=== PATIENT | female | born 2000 | race Caucasian/White ===

== ENCOUNTER 2018-09-28 17:22 | Emergency (ER) | payer SELFPAY ==
[~2018-09-28] VITALS: Ht 149.9 cm; Wt 81.6 kg
[2018-09-28] MEDS ORDERED: ACYC400T PO (17:35)
[2018-09-28 17:54] LABS: BILIRUBIN,URINE NEGATIVE (NEGATIVE); CLARITY,URINE CLEAR; COLOR,URINE YELLOW; GLUCOSE, URINE (UA) NEGATIVE (NEGATIVE); KETONES,URINE 1+ (NEGATIVE); LEUKOCYTE ESTERASE ,URINE 3+ (NEGATIVE); NITRITE,URINE NEGATIVE (NEGATIVE); PH,URINE 6 (5-9); PROTEIN,URINE 2+ (NEGATIVE); UROBILINOGEN,URINE NORMAL (NORMAL)
--- NOTE | 2018-09-28 18:11 | NUR ---
LAB CALLED WITH REPORT CULTURES ARE MOD AMT OF WBC AND CUE CELL LIZET [employer] NOTIFIED.
[2018-09-28] MEDS ORDERED: LIDOCAINE 1% INJ 20 ML 20 ML VIAL INJ ONE (18:15)
[2018-09-28] MEDS ORDERED: HYDROcodone/APAP 5 MG/325 MG (LORTAB) TAB PO ONE (18:15)
[2018-09-28] MEDS ORDERED: cefTRIAXone 1,000 MG/2.86 ml vial (IM ONLY) IM SCH (18:15)
[2018-09-28 18:17] LABS: BACTERIA,URINE TRACE /HPF
[2018-09-28] MEDS ORDERED: METR-145 PO (18:49)
[2018-09-28] MEDS ORDERED: ACHD5005 PO (18:49)
--- NOTE | 2018-09-28 18:51 | ED Integumentary General ---
General Chief Complaint: Skin/Wound Problems Stated Complaint: SKIN LESIONS IN GROIN Nursing Triage Note: AMB TO ROOM WAS SEEN AT CLINIC IN [place] FOR POSSIBLE HERPES REPORTS THAT HAS LESIONS IN VAG AREA THAT ARE PAINFUL AND BURN. WAS STARTED ON ACYCLOVIR .WAS TESTED FOR ALL STD'S AND HERPES CALLED CLINC TODAY AND WAS TOLD ALL TEST WAS NEG.,BUT CON'T TO HAVE INCREASE SWELLING AND BURNING. Source: patient Exam Limitations: no limitations History of Present Illness Date Seen by Provider: Sep 28, 2018 Time Seen by Provider: 17:36 Initial Comments 18-year-old female who presents to the emergency room with complaints of possible herpes to her vagina area. She reports that she was seen and evaluated in [place] for possible herpes and was started on acyclovir. She was informed that her testings were all negative but has had increasing pain and swelling to the area. She is still waiting on blood testing results. Timing/Duration: week Associated Symptoms: blisters Allergies and Home Medications Allergies Coded Allergies: No Known Drug Allergies (Unverified , 09/28/18) Home Medications Hydrocodone Bit/Acetaminophen 1 Tab Tab, 1 EACH PO Q4-6HR PRN for PAIN-MODERATE Prescribed by: LIZET MAGUIRE on 09/28/181848 Metronidazole 500 Mg Tablet, 500 MG PO BID Prescribed by: LIZET MAGUIRE on 09/28/181848 Patient Home Medication List Home Medication List Reviewed: Yes Review of Systems Review of Systems Constitutional: see HPI; No chills, No fever Genitourinary: see HPI, pain (to the outer area of her vagina) : No All Other Systems Reviewed Negative Unless Noted: Yes Past Xjpdomy-Wlzrgh-Tjqyhq Hx Past Med/Social Hx: Reviewed Nursing Past Med/Soc Hx Patient Social History Alcohol Use: Denies Use Recreational Drug Use: No Smoking Status: Never a Smoker Recent Foreign Travel: No Contact w/Someone Who Travel: No Recent Infectious Disease Expo: No Past Medical History Surgeries: Yes Gallbladder, Tonsillectomy Respiratory: No Cardiac: No Neurological: No Genitourinary: No Gastrointestinal: No Musculoskeletal: No Endocrine: No HEENT: No Cancer: No Psychosocial: No Integumentary: No Family Medical History Reviewed Nursing Family Hx Physical Exam Vital Signs Vital Signs - First Documented 09/28/18 17:27 Temp 98.5 Pulse 80 Resp 18 B/P (MAP) 102/71 (81) Pulse Ox 99 O2 Delivery Room Air Capillary Refill : Less Than 3 Seconds General Appearance: WD/WN, no apparent distress Cardiovascular: normal peripheral pulses, regular rate, rhythm, no edema, no gallop, no JVD, no murmur Respiratory: chest non-tender, lungs clear, normal breath sounds, no respiratory distress, no accessory muscle use Extremities: normal capillary refill Neurologic/Psychiatric: alert, normal mood/affect, oriented x 3 Skin: normal color, warm/dry Skin Problem Location: other (vagina) Skin Problem Character: lesion (herpes appearing lesions. Exam was assisted by Talita PURI.) Progress/Results/Core Measures Results/Orders Lab Results Laboratory Tests Test 09/28/18 17:26 09/28/18 17:44 Range/Units Lab Scanned Report Referred Lab Report [id number] Urine Color YELLOW Urine Clarity CLEAR Urine pH 6 5-9 Urine Specific [place] 1.020 1.016-1.022 Urine Protein 2+ H NEGATIVE Urine Glucose (UA) NEGATIVE NEGATIVE Urine Ketones 1+ H NEGATIVE Urine Nitrite NEGATIVE NEGATIVE Urine Bilirubin NEGATIVE NEGATIVE Urine Urobilinogen NORMAL NORMAL MG/DL Urine Leukocyte Esterase 3+ H NEGATIVE Urine RBC (Auto) 3+ H NEGATIVE Urine RBC NONE /HPF Urine WBC 10-25 H /HPF Urine Squamous Epithelial Cells 5-10 /HPF Urine Crystals NONE /LPF Urine Bacteria TRACE /HPF Urine Casts NONE /LPF Urine Mucus NEGATIVE /LPF Urine Culture Indicated YES Micro Results Microbiology 09/28/18 Genital Culture - Preliminary, Resulted Usual Vaginal Shadia Strep agalactiae Group B 09/28/18 Wet Prep - Final, Resulted 09/28/18 Urine Culture - Final, Complete 3 or more isolates My Orders Orders - LIZET MAGUIRE Wet Prep (09/28/18 17:36) Genital Culture (09/28/18 17:36) Herpes Simplex Culture (09/28/18 17:39) Ua Culture If Indicated (09/28/18 17:41) Neis Jose Carlos Dna Urine Test (09/28/18 17:41) Chlamydia Trachomatis Urine (09/28/18 17:41) Ceftriaxone For Im Use (Rocephin For Im (09/28/18 18:15) Lidocaine 1% Inj 20 Ml (Xylocaine 1% Inj (09/28/18 18:15) Hydrocodone/Apap 5/325 Tablet (Lortab 5 (09/28/18 18:15) Urine Culture (09/28/18 17:44) Lidocaine 2% Viscous 15 Ml (Xylocaine Vi (09/28/18 18:54) Azithromycin Tablet (Zithromax Tablet) (09/28/18 19:00) Im Injection Antibiotic Ed (09/28/18 ) Medications Given in ED Vital Signs/I&O 09/28/18 09/28/18 17:27 19:08 Temp 98.5 Pulse 80 80 Resp 18 18 B/P (MAP) 102/71 (81) 102/71 (81) Pulse Ox 99 98 O2 Delivery Room Air Room Air Blood Pressure Mean: 81 Departure Impression Primary Impression: suspected herpes Additional Impression: Bacterial vaginosis Disposition: HOME, SELF-CARE Condition: Stable/Unchanged Departure-Patient Inst. Decision time for Depature: 18:46 Referrals: NO,LOCAL PHYSICIAN (PCP/Family) Primary Care Physician Patient Instructions: Bacterial Vaginosis, Genital Herpes (DC), Screening for Sexually Transmitted Infections Add. Discharge Instructions: Refrain from sexual intercourse until your testing is completed. Take medications as directed. You may use Tylenol and ibuprofen in addition to your prescribed pain meds not exceeding your daily limit of Tylenol of 4000 mg. Use the topical lidocaine that was provided as needed for comfort. Return back to the emergency room for worsening symptoms or concerns as needed. All discharge instructions reviewed with patient and/or family. Voiced understanding. Scripts Hydrocodone Bit/Acetaminophen (Hydrocodone/Acetaminophen 5/325mg Tablet) 1 Tab Tab 1 EACH PO Q4-6HR PRN for PAIN-MODERATE MDD 10 for 3 Days, #14 TAB Prov: LIZET MAGUIRE 09/28/18 Metronidazole (Metronidazole) 500 Mg Tablet 500 MG PO BID for 7 Days, #14 TAB 0 Refills Prov: LIZET MAGUIRE 09/28/18 LIZET MAGUIRE Sep 28, 2018 18:51
[2018-09-28] MEDS ORDERED: LIDOCAINE 2% VISCOUS 15 ML UDC ONE (18:54)
[2018-09-28] MEDS ORDERED: AZITHROMYCIN 250 MG TAB (ZITHROMAX) PO SCH (19:00)
[2018-09-28 19:08] VITALS: BP 102/71
--- OUTSIDE RECORDS SUMMARY | 2018-09-28 19:20 | XMS REPORT ---
Author Author LUBA GORE Organization [facility] Address [address] [place] [address] Care Team Providers Care Primary Counselor Name Role Phone LUBA GORE Unavailable PROBLEMS Unknown Problems ALLERGIES No Known Allergies ENCOUNTERS Encounter Location Date Diagnosis [facility] [address] [facility] [id number] [address] Mar, Dysuria R30.0 and Urinary tract infection N39.0 IMMUNIZATIONS No Known Immunizations SOCIAL HISTORY Never Assessed REASON FOR VISIT Dysuria x 2-3 days. Pain when wiping. Denies polyuria. Pt has not been sexual ly active for three months and utilized protection in the form of a condom. [facility] PLAN OF CARE Activity Details Follow Up if not improving with PCP or reg follow up Reason: Pending Test CULTURE, URINE VITAL SIGNS Height 58.66 in 2018-04-02 Weight 168.6 lbs 2018-04-02 Temperature 97.6 degrees Fahrenheit 2018-04-02 Heart Rate 80 bpm 2018-04-02 Respiratory Rate 20 2018-04-02 BMI 34.45 kg/m2 2018-04-02 Blood pressure systolic 104 mmHg 2018-04-02 Blood pressure diastolic 60 mmHg 2018-04-02 MEDICATIONS Medication Instructions Dosage Frequency Start Date End Date Duration Status Sulfamethoxazole-Trimethoprim 800-160 MG Orally Twice a day 1 tablet 12Mar, 10 day(s) Active RESULTS Name Result Date Reference Range UA LONG DIP (IN HOUSE) 2018-04-02 Lot # [id number] Exp date 01/23/2019 Clarity clear Color yellow Odor slight GLU negative CHAYO negative KET negative SG >=1.030 BLO 1+ pH 5.5 Protein negative URO 0.2 NIT negative CHRISTINA 1+ Lot # Exp date PROCEDURES Procedure Date Ordered Result Body Site URINALYSIS, AUTO, W/O SCOPE Apr 02, 2018 URINE CULTURE/COLONY COUNT Apr 02, 2018 INSTRUCTIONS MEDICATIONS ADMINISTERED No Known Medications MEDICAL (GENERAL) HISTORY Type Description Date Medical History PCOS diagnosed 2016 Surgical History cholecystectomy 2017 Surgical History tonsillectomy and adenoidectomy 2016
== END 2018-09-28 19:07 | disposition home or self-care (01) ==
LOC: ER 17:26
DX: N76.0 Acute vaginitis (principal); B96.89 Other specified bacterial agents as the cause of diseases classified elsewhere; Z90.89 Acquired absence of other organs
CPT/HCPCS: 36415; 81000; 87070; 87077; 87088; 87205; 87210; 87254; 87491; 87591; 96372; 99284

== ENCOUNTER 2018-11-03 21:44 | Emergency (ER) | payer SELFPAY ==
[~2018-11-03] VITALS: Ht 149.9 cm; Wt 81.6 kg
[~2018-11-03 21:44] MED LIST: ACHD5005 PO; ACYC400T PO; METR-145 PO
[2018-11-03] MEDS ORDERED: METF-397 PO (21:57)
--- NOTE | 2018-11-03 22:09 | ED GU-Female ---
General Chief Complaint: RN HOSPITAL Stated Complaint: FEMALE PROBLEMS Nursing Triage Note: genital lesions, rectal bleeding. Nursing Sepsis Screen: No Definite Risk Source: patient Exam Limitations: no limitations History of Present Illness Date Seen by Provider: Nov 03, 2018 Time Seen by Provider: 21:46 Initial Comments The patient presents to the ER by private conveyance with her significant other and chief complaint that last month she was diagnosed with HSV type I herpes labialis as well as a bacterial vaginitis. She was put on Flagyl and acyclovir. She was also given some lidocaine topical. She said that the herpes outbreak never totally went away and its burning and cause a lot of pain. She's also noticed some blood in the last 2 stools for the past day. She denies any chest pain shortness of breath or history of anemia. No nausea vomiting or dysuria. She does take metformin for a history of diabetes. Allergies and Home Medications Allergies Coded Allergies: No Known Drug Allergies (Unverified , 09/28/18) Patient Home Medication List Home Medication List Reviewed: Yes Review of Systems Review of Systems Constitutional: No chills, No fever, No malaise EENTM: No ear discharge, No hearing loss, No ear pain Respiratory: No cough, No short of breath Cardiovascular: No chest pain, No edema Gastrointestinal: see HPI; No abdominal pain, No constipation, No nausea Genitourinary: burning (labial rash); denies dysuria : No Musculoskeletal: No back pain, No joint pain Past Uhgqkhs-Qgjhwf-Aqvyik Hx Patient Social History Alcohol Use: Denies Use Recreational Drug Use: No Smoking Status: Never a Smoker 2nd Hand Smoke Exposure: No Recent Foreign Travel: No Contact w/Someone Who Travel: No Recent Infectious Disease Expo: No Recent Hopitalizations: No Immunizations Up To Date Tetanus Booster (TDap): Unknown Seasonal Allergies Seasonal Allergies: No Past Medical History Surgeries: Yes Gallbladder, Tonsillectomy Respiratory: No Cardiac: No Neurological: No : No Sexually Transmitted Disease: Yes HIV/AIDS: No Genitourinary: No Gastrointestinal: No Musculoskeletal: No Endocrine: Yes Diabetes, Non-Insulin dep HEENT: No Cancer: No Psychosocial: No Integumentary: No Blood Disorders: No Physical Exam Vital Signs Vital Signs - First Documented 11/03/18 21:50 Temp 99.8 Pulse 89 Resp 18 B/P (MAP) 115/79 (91) Pulse Ox 98 O2 Delivery Room Air Capillary Refill : Less Than 3 Seconds Height, Weight, BMI Height: 4'11.00" Weight: 180lbs. oz. 81.796730uc; BMI Method:Stated General Appearance: WD/WN, no apparent distress HEENT: PERRL/EOMI, normal ENT inspection, pharynx normal Cardiovascular: normal peripheral pulses, regular rate, rhythm Respiratory: no respiratory distress, no accessory muscle use Gastrointestinal: normal bowel sounds, non tender, soft Genital/Rectal: other (external vaginal exam with some shallow ulcerations that are tender to palpation pale appearance consistent with herpes. No evidence of secondary bacterial infection.) Rectal: normal rectal tone, hemorrhoids (12:00 o'clock), other (fecal occult blood test positive. No stool in the rectal vault) Neurologic/Psychiatric: alert, normal mood/affect, oriented x 3 Progress/Results/Core Measures Suspected Sepsis Recent Fever Within 48 Hours: No Infection Criteria Present: None New/Unexplained Altered Menta: No Sepsis Screen: No Definite Risk SIRS Temperature:99.8 Pulse: 89 Respiratory Rate: 18 Blood Pressure 115 /79 Mean: 91 Results/Orders Vital Signs/I&O 11/03/18 21:50 Temp 99.8 Pulse 89 Resp 18 B/P (MAP) 115/79 (91) Pulse Ox 98 O2 Delivery Room Air Capillary Refill : Less Than 3 Seconds Blood Pressure Mean: 91 Progress Note : Time: 22:40 Progress Note Fecal occult blood test is positive. We will give her referral to Dr. Davey. She has a small unremarkable noninflamed hemorrhoid at 12:00. She has some herpes ulcerations but stool itself has microscopic/occult blood. Acyclovir oral. Viscous lidocaine. Encourage her to follow up with a primary care provider. Departure Impression Primary Impression: Herpes genitalis in women Additional Impressions: Vj blood in stool Hemorrhoidal skin tag Disposition: HOME, SELF-CARE Condition: Stable Departure-Patient Inst. Decision time for Depature: 22:44 Referrals: NO,LOCAL PHYSICIAN (PCP/Family) Primary Care Physician Patient Instructions: Bloody Stools, Adult (DC), Genital Herpes (DC) Add. Discharge Instructions: Acyclovir 3 times a day by mouth with food. Viscous lidocaine applied one pea sized amount every 4 hours as needed for pain. Keep your stool soft by using stool softeners such as Colace and laxatives such as MiraLAX or suppositories as needed. Drink plenty of fluids. Call Dr. Davey, general surgery and request an appointment to follow-up the blood in the stool. All discharge instructions reviewed with patient and/or family. Voiced understanding. Scripts Acyclovir (Acyclovir) 800 Mg Tablet 800 MG PO TID for 7 Days, #21 TAB 0 Refills Prov: CARITO GOEL 11/03/18 Acyclovir (Acyclovir) 800 Mg Tablet 800 MG PO TID for 10 Days, #30 TAB 0 Refills Prov: CRAITO GOEL 11/03/18 CARITO GOEL Nov 03, 2018 22:09
[2018-11-03] MEDS ORDERED: ACYC800T PO (22:46)
[2018-11-03] MEDS ORDERED: LIDOCAINE 2% VISCOUS 15 ML UDC PO ONE (23:00)
[2018-11-03 23:02] VITALS: BP 102/81
--- NOTE | 2018-11-04 09:29 | NUR ---
tonya called us. they have 2 scripts for acyclovir 800 mg . 1 script for 7 days and [address] vázquez reviewed the chart and said 10 days. that is what i said to pharmacy.
== END 2018-11-03 23:02 | disposition home or self-care (01) ==
LOC: EDUNIT# 21:44 → ER 21:46
DX: A60.04 Herpesviral vulvovaginitis (principal); K64.4 Residual hemorrhoidal skin tags; K92.1 Melena; E11.9 Type 2 diabetes mellitus without complications; Z79.84 Long term (current) use of oral hypoglycemic drugs
CPT/HCPCS: 99283

== ENCOUNTER 2019-09-24 10:35 | Emergency (ER) | payer BC ==
[~2019-09-24] VITALS: Ht 147 cm; Wt 82.2 kg
[~2019-09-24 10:35] MED LIST changes: +ACYC800T PO; +METF-397 PO
--- OUTSIDE RECORDS SUMMARY | 2019-09-24 10:40 | XMS REPORT | Continuity of Care Document ---
Author Organization Unknown Address Unknown Phone Unavailable Allergies Active Description Code Type Severity Reaction Onset Reported/Identified Relationship to Patient Clinical Status Yes No Known Drug Allergies [id number] Drug Allergy Unknown N/A 09/28/2018 Medications There is no data. Problems Date Dx Coded Attending Type Code Diagnosis Diagnosed By 09/28/2018 LIZET MAGUIRE Ot B96.89 OTH BACTERIAL AGENTS THE CAUSE OF DIS 09/28/2018 BERNOT, LIZET Ot N76.0 ACUTE VAGINITIS 09/28/2018 BERNOTTIANAIS Ot R10.2 PELVIC AND PERINEAL PAIN 09/28/2018 BERNTIANA BOLIVARIS Ot Z90.89 ACQUIRED ABSENCE OF OTHER ORGANS 10/03/2018 BERNOTTIANAIS Ot B96.89 OTH BACTERIAL AGENTS THE CAUSE OF DIS 10/03/2018 BERNOT, LIZET Ot N76.0 ACUTE VAGINITIS 10/03/2018 BERNOT, LIZET Ot R10.2 PELVIC AND PERINEAL PAIN 10/03/2018 BERNOT LIZET Ot Z90.89 ACQUIRED ABSENCE OF OTHER ORGANS 11/03/2018 CARITO GOEL MD Ot A60. 04 HERPESVIRAL VULVOVAGINITIS 11/03/2018 CARITO GOEL MD Ot E11. 9 TYPE 2 DIABETES MELLITUS WITHOUT COMPLIC 11/03/2018 CARITO GOEL MD Ot K64. 4 RESIDUAL HEMORRHOIDAL SKIN TAGS 11/03/2018 CARITO GOEL MD Ot K92. 1 MELENA 11/03/2018 CARITO GOEL MD Ot N89. 8 OTHER SPECIFIED NONINFLAMMATORY DISORDER 11/03/2018 CARITO GOEL MD Ot Z79. 84 [employer] (CURRENT) USE OF ORAL HYPOGLYC 11/09/2018 CARITO GOEL MD Ot A60. 04 HERPESVIRAL VULVOVAGINITIS 11/09/2018 CARITO GOEL MD Ot E11. 9 TYPE 2 DIABETES MELLITUS WITHOUT COMPLIC 11/09/2018 CARITO GOEL MD Ot K64. 4 RESIDUAL HEMORRHOIDAL SKIN TAGS 11/09/2018 CARITO GOEL MD Ot K92. 1 MELENA 11/09/2018 CARITO GOEL MD Ot N89. 8 OTHER SPECIFIED NONINFLAMMATORY DISORDER 11/09/2018 CARITO GOEL MD Ot Z79. 84 [employer] (CURRENT) USE OF ORAL HYPOGLYC Procedures There is no data. Results Test Result Range Complete urinalysis with reflex to cultu re - 09/28/18 17:44 Urine color determination YELLOW NRG Urine clarity determination CLEAR NR G Urine pH measurement by test strip 6 5-9 Specific gravity of urine by test strip 1.020 1.016-1.022 Urine protein assay by test strip, semi-quantitative 2+ NEGATIVE Urine glucose detection by automated test strip NE GATIVE NEGATIVE Erythrocytes detection in urine sediment by light micr oscopy 3+ NEGATIVE Urine ketones detection by automated test strip 1+ NEGATIVE Urine nitrite detection by test strip NEGATIVE NEGATIVE Urine total bilirubin detection by test strip NEGA TIVE NEGATIVE Urine urobilinogen measurement by automated test strip (mass/volume) NORMAL NORMAL Urine leukocyte esterase detection by dipstick 3+ NEGATIVE Automated urine sediment erythrocyte cou nt by microscopy (number/high power field) NONE NRG Automated urine sediment leukocyte count by microscopy (number/high power field) [HPF] NRG Bacteria detection in urine sediment by light microsco py TRACE NRG Squamous epithelial cells detection in u rine sediment by light microscopy 5-10 NRG Crystals detection in urine sediment by light microsco py NONE NRG Casts detection in urine sediment by light microscopy NONE NRG Mucus detection in urine sediment by light microscopy NEGATIVE NRG Complete urinalysis with reflex to culture YES NRG Bacterial urine culture - 09/28/18 17:44 Bacterial urine culture 3 OR MORE NRG COLONY COUNT 20,000 CFU/ML NRG FTX;REPORTABLE GRAM POSITIVES, SUGGESTING PROBABLE NRG FREE TEXT ENTRY 2 COLLECTION CONTAMINATION WITH SK IN DIVINE NRG FREE TEXT ENTRY 3 NO SUSCEPTIBILITY PERFORMED NRG Chlamydia DNA amp probe, urine - 9 17:44 Chlamydia DNA amp probe, urine Not Detected Not Detected Urine Neisseria gonorrhoeae DNA assay - 09/28/18 17:44 Gonorrhea amp DNA-urine Not Detected No t Detected Bacteria identification in genital speci men by aerobe culture - 09/28/18 17:59 FREE TEXT EXTERNAL SEE COMMENTS NRG QUANTITY OF GROWTH FEW NRG Bacteria identification in genital specimen by aerobe culture [id number] NRG Microscopic examination by wet preparati on - 09/28/18 17:59 WET PREP RESULTS 09/28/18 1755 BY RT NRG Herpes simplex virus (HSV) culture - 09/11 17:59 Herpes simplex virus (HSV) culture Negative for Herpes Simplex Virus Type 2 NRG Encounters ACCT No. Visit Date/Time Discharge Status Pt. Type Provider Facility Loc./Unit Complaint [id number] 11/03/2018 21:46:00 019 23:02:00 DIS Emergency CARITO GOEL MD [facility] ER FEMALE PROBLEMS [id number] 09/28/2018 17:26:00 19:07:00 DIS Emergency LIZET MAGUIRE [facility] ER SKIN LESIONS IN GROIN
--- NOTE | 2019-09-24 11:36 | Diagnostic Imaging Report ---
INDICATION: Pain COMPARISON: None available TECHNIQUE: 3 radiographs of the left foot dated 09/24/2019. FINDINGS: No acute fracture or dislocation. No destructive osseous process. Lisfranc joint is well aligned. No suspicious radiopaque foreign body. IMPRESSION: Unremarkable examination without acute osseous abnormality. Dictated by: Dictated on workstation # [id number]
--- NOTE | 2019-09-24 12:03 | ED Lower Extremity ---
General Chief Complaint: Lower Extremity Stated Complaint: L FOOT INJ Nursing Triage Note: PT PRESENTS TO ED WITH COMPLAINTS OF L FOOT PAIN AFTER GOIG OUT 3 DAYS AGO. PT IS UNSURE/DOESNT REMEMBER IF SHE MAY HAVE INJURED IT OR NOT. Nursing Sepsis Screen: No Definite Risk Source: patient Exam Limitations: no limitations History of Present Illness Date Seen by Provider: September 24, 2019 Time Seen by Provider: 10:48 Initial Comments This 19-year-old young lady presents to the emergency room with left foot pain. She went out drinking with her friends 3 nights ago and noticed pain in the next day. She does not recall any injury. Pain has intensified, especially after working and being on her feet last night. Pain seems to be concentrated inferior to the lateral malleolus and near the distal end of the middle metatarsals. She is ambulatory. Allergies and Home Medications Allergies Coded Allergies: No Known Drug Allergies (Unverified , 09/28/18) Home Medications Acyclovir 800 Mg Tablet, 800 MG PO TID Prescribed by: CARITO GOEL on 11/03/182245 Acyclovir 800 Mg Tablet, 800 MG PO TID Prescribed by: CARITO GOEL on 11/03/182245 Patient Home Medication List Home Medication List Reviewed: Yes Review of Systems Constitutional: no symptoms reported EENTM: no symptoms reported Respiratory: no symptoms reported Cardiovascular: no symptoms reported Gastrointestinal: no symptoms reported Genitourinary: no symptoms reported : No Musculoskeletal: see HPI Skin: no symptoms reported Psychiatric/Neurological: No Symptoms Reported Past Lhwhmtn-Tviemi-Lorhmo Hx Past Med/Social Hx: Reviewed Nursing Past Med/Soc Hx Patient Social History Alcohol Use: Occasionally Uses Recreational Drug Use: No Smoking Status: Never a Smoker 2nd Hand Smoke Exposure: No Recent Foreign Travel: No Contact w/Someone Who Travel: No Recent Infectious Disease Expo: No Recent Hopitalizations: No Physical Abuse: No Sexual Abuse: No Mistreated: No Fear: No Immunizations Up To Date Tetanus Booster (TDap): Unknown Seasonal Allergies Seasonal Allergies: No Past Medical History Surgeries: Yes Gallbladder, Tonsillectomy Respiratory: No Cardiac: No Neurological: No Sexually Transmitted Disease: Yes HIV/AIDS: No Genitourinary: No Gastrointestinal: No Musculoskeletal: No Endocrine: Yes Diabetes, Non-Insulin dep HEENT: No Cancer: No Psychosocial: No Integumentary: No Blood Disorders: No Physical Exam Vital Signs Vital Signs - First Documented 09/24/19 10:49 Temp 36.3 Pulse 76 Resp 18 B/P (MAP) 116/78 (91) Pulse Ox 99 Capillary Refill : Less Than 3 Seconds Height, Weight, BMI Height: 4'11.00" Weight: 180lbs. oz. 81.747653et; 38.00 BMI Method:Stated General Appearance: WD/WN, no apparent distress, obese HEENT: normal ENT inspection Neck: normal inspection Cardiovascular: regular rate, rhythm, no edema, no murmur Respiratory: lungs clear, normal breath sounds, no respiratory distress Legs: left leg non-tender, left leg normal inspection, left leg normal range of motion, left leg no evidence of injury Ankles: left ankle non-tender, left ankle normal inspection, left ankle normal range of motion, left ankle no evidence of injury Feet: left foot bone tenderness, left foot limited range of motion, left foot other (Tenderness inferior to the lateral malleolus and toward the distal end of the middle metatarsals. No visible evidence of injury on exam.) Neurologic/Tendon: normal sensation, normal motor functions, normal tendon functions Neurologic/Psychiatric: sole buffer II-XII nml as tested, no motor/sensory deficits, alert, normal mood/affect, oriented x 3 Skin: normal color, warm/dry Progress/Results/Core Measures Results/Orders My Orders Orders - PAT JEREZ MD Foot, Left, 3 Views (09/24/19 10:55) Vital Signs/I&O 09/24/19 09/24/19 10:49 12:08 Temp 36.3 Pulse 76 80 Resp 18 16 B/P (MAP) 116/78 (91) 110/70 Pulse Ox 99 98 Blood Pressure Mean: 91 Progress Progress Note : Progress Note No fractures were identified. Patient was offered crutches but declined. She was wrapped with an Dewayne wrap and dismissed home. See discharge instructions. Diagnostic Imaging Diagonstic Imaging: Xray Plain Films/CT/US/NM/MRI: other (Foot) Comments X-ray of the left foot viewed by me and report reviewed. See report below: NAME: BOYCEROSIO E MED REC#: [id number] PT STATUS: DEP ER : 2000 PHYSICIAN: PAT JEREZ MD ADMIT DATE: 09/24/19/ER Signed Date of Exam:09/24/19 FOOT, LEFT, 3 VIEWS INDICATION: Pain COMPARISON: None available TECHNIQUE: 3 radiographs of the left foot dated 09/24/2019. FINDINGS: No acute fracture or dislocation. No destructive osseous process. Lisfranc joint is well aligned. No suspicious radiopaque foreign body. IMPRESSION: Unremarkable examination without acute osseous abnormality. Dictated by: Dictated on workstation # [id number] Dict: 09/24/19 1129 Trans: 09/24/19 1521 [facility] [phone] Interpreted by: LOUISE HARE MD Electronically signed by: LOUISE HARE MD 09/24/19 1521 Departure Impression Primary Impression: Sprain of left foot Qualified Codes: S93.602A - Unspecified sprain of left foot, initial encounter Additional Impression: Left foot pain Disposition: HOME, SELF-CARE Condition: Improved Departure-Patient Inst. Decision time for Depature: 12:02 Referrals: NO,LOCAL PHYSICIAN (PCP/Family) Primary Care Physician Patient Instructions: Foot Sprain (DC) Add. Discharge Instructions: You may use ibuprofen up to 600 mg every 6 hours and/or Tylenol (acetaminophen) up to 1000 mg every 6 hours as needed for pain. You may wrap with Dewayne bandage and/or use an ankle brace to help support your foot and ankle as needed. Gradually increase level of activity as tolerated. Use crutches if needed. Elevation and 20 minute intervals of icing may help reduce pain and swelling. Return to care or call your doctor if symptoms are not improving as expected or worsen. All discharge instructions reviewed with patient and/or family. Voiced understanding. PAT JEREZ MD September 24, 2019 12:03
[2019-09-24 12:08] VITALS: BP 110/70
== END 2019-09-24 12:08 | disposition home or self-care (01) ==
LOC: EDUNIT# 10:35 → ER 10:36
DX: S93.602A Unspecified sprain of left foot, initial encounter (principal); X58.XXXA Exposure to other specified factors, initial encounter
CPT/HCPCS: 73630

== ENCOUNTER 2020-03-04 22:15 | Emergency (ER) | payer SELFPAY ==
[~2020-03-04] VITALS: Ht 149 cm; Wt 90.0 kg
[2020-03-04] MEDS ORDERED: BENZONATATE 100 MG (TESSALON) CAPSULE PO ONE (22:45)
[2020-03-04] MEDS ORDERED: AZITHROMYCIN 250 MG TAB (ZITHROMAX) PO ONE (22:45)
--- NOTE | 2020-03-04 23:36 | ED General ---
General Chief Complaint: Cough/Cold/Flu Symptoms Stated Complaint: NO TASTE/SMELL;COUGH;CONGESTION;HEADACHE Nursing Triage Note: Pt here with cough, AMBROSIO, body aches, and congestion. Started with sore throat 2 days ago and progressed with other s/s including loss of taste and smell. Nursing Sepsis Screen: No Definite Risk Source of Information: Patient Exam Limitations: No Limitations History of Present Illness Date Seen by Provider: Mar 05, 2020 Time Seen by Provider: 22:35 Initial Comments This 19-year-old young lady presents to the emergency room with complaints of flulike symptoms including headache, cough, congestion, sore throat, myalgia, fever, and loss of taste and smell. She has had no known Covid exposures. This is her third day of symptoms. Allergies and Home Medications Allergies Coded Allergies: No Known Drug Allergies (Unverified , 09/28/18) Home Medications Acyclovir 800 Mg Tablet, 800 MG PO TID Prescribed by: CARITO GOEL on 11/03/182245 Acyclovir 800 Mg Tablet, 800 MG PO TID Prescribed by: CARITO GOEL on 11/03/182245 Azithromycin 250 Mg Tablet, 250 MG PO DAILY Prescribed by: PAT QUINN on 03/04/202338 Benzonatate 100 Mg Capsule, 200 MG PO TID PRN for COUGH Prescribed by: PAT QUINN on 03/04/20 2339 Patient Home Medication List Home Medication List Reviewed: Yes Review of Systems Review of Systems Constitutional: see HPI EENTM: see HPI Respiratory: see HPI Cardiovascular: no symptoms reported Gastrointestinal: diarrhea Genitourinary: no symptoms reported : No Musculoskeletal: see HPI Skin: no symptoms reported Psychiatric/Neurological: See HPI Hematologic/Lymphatic: No Symptoms Reported Immunological/Allergic: no symptoms reported Past Qtlilma-Gtdzaq-Durbhm Hx Past Med/Social Hx: Reviewed Nursing Past Med/Soc Hx Patient Social History Alcohol Use: Occasionally Uses Recreational Drug Use: Yes Drug of Choice: Marijuana Smoking Status: Never a Smoker 2nd Hand Smoke Exposure: No Recent Foreign Travel: No Contact w/Someone Who Travel: No Recent Infectious Disease Expo: No Recent Hopitalizations: No Physical Abuse: No Sexual Abuse: No Mistreated: No Fear: No Immunizations Up To Date Tetanus Booster (TDap): Unknown Seasonal Allergies Seasonal Allergies: No Past Medical History Surgeries: Yes Gallbladder, Tonsillectomy Respiratory: No Cardiac: No Neurological: No : No Sexually Transmitted Disease: Yes HIV/AIDS: No Genitourinary: No Gastrointestinal: No Musculoskeletal: No Endocrine: Yes Diabetes, Non-Insulin dep HEENT: No Cancer: No Psychosocial: No Integumentary: No Blood Disorders: No Physical Exam Vital Signs Vital Signs - First Documented 03/04/20 22:32 Temp 36.7 Pulse 95 Resp 18 B/P (MAP) 138/63 (88) Pulse Ox 98 O2 Delivery Room Air Capillary Refill : Less Than 3 Seconds Height, Weight, BMI Height: 4'11.00" Weight: 180lbs. oz. 81.626164it; 40.00 BMI Method:Stated General Appearance: No Apparent Distress, WD/WN HEENT: PERRL/EOMI, TMs Normal, Normal ENT Inspection, Pharynx Normal Neck: Normal Inspection Respiratory: Lungs Clear, Normal Breath Sounds, No Accessory Muscle Use, No Respiratory Distress Cardiovascular: Regular Rate, Rhythm, No Edema, No Murmur Gastrointestinal: Non Tender, Soft Extremity: Normal Inspection, No Pedal Edema Neurologic/Psychiatric: Alert, Oriented x3, No Motor/Sensory Deficits, Normal Mood/Affect, drug and alcohol counselor II-XII Norm as Tested Skin: Normal Color, Warm/Dry Progress/Results/Core Measures Suspected Sepsis Recent Fever Within 48 Hours: No Infection Criteria Present: None New/Unexplained Altered Menta: No Sepsis Screen: No Definite Risk SIRS Temperature: Pulse: 95 Respiratory Rate: 18 Blood Pressure 138 /63 Mean: 88 Results/Orders Lab Results Laboratory Tests Test 03/04/20 22:30 Range/Units Micro Results Microbiology 03/04/20 Influenza Types A,B Antigen ([facility]) - Final, Complete My Orders Orders - PAT JEREZ MD Azithromycin Tablet (Zithromax Tablet) (03/04/20 22:45) Benzonatate Capsule (Tessalon Perles) (03/04/20 22:45) Influenza A And B Antigens (03/04/20 22:42) Coronavirus Sars-Cov-2 So 2019 (03/04/20 22:42) Medications Given in ED Current Medications Medications Dose Ordered Sig/Kae Route Start Time Stop Time Status Last Admin Dose Admin Azithromycin 500 mg ONCE ONCE PO 03/04/20 22:45 03/04/20 22:46 DC 03/04/20 22:46 500 MG Benzonatate 200 mg ONCE ONCE PO 03/04/20 22:45 03/04/20 22:46 DC 03/04/20 22:46 200 MG Vital Signs/I&O 03/04/20 03/05/20 22:32 00:29 Temp 36.7 36.7 Pulse 95 95 Resp 18 18 B/P (MAP) 138/63 (88) 138/63 (88) Pulse Ox 98 98 O2 Delivery Room Air Capillary Refill : Less Than 3 Seconds Blood Pressure Mean: 88 Progress Note : Time: 01:27 Progress Note Rapid influenza screen was negative. Send out Covid swab was collected. Patient was treated with Tessalon Perles and a azithromycin. She had significant improvement in her cough. Patient was prescribed azithromycin as she is at high risk for complications from Covid due to diabetes, obesity, and mine already status. Departure Impression Primary Impression: Flu-like symptoms Additional Impression: Person under investigation for COVID-19 Disposition: HOME, SELF-CARE Condition: Improved Departure-Patient Inst. Decision time for Depature: 23:33 Referrals: NO,LOCAL PHYSICIAN (PCP/Family) Primary Care Physician Patient Instructions: COVID19 Add. Discharge Instructions: For headache and pain take either ibuprofen up to 600 mg every 6 hours as needed or naproxen up to 500 mg twice daily. Add Tylenol (acetaminophen) up to 1000 mg every 6 hours as needed for additional pain relief. Use Tessalon Perles as prescribed for a cough suppressant. Complete azithromycin as prescribed. Remain in quarantine until the results of your COVID-19 test is known. If positive, follow health department instructions. If negative, remain in quarantine until you are free of significant symptoms and fever for at least 72 hours. Return to the emergency room if you have worsening symptoms not treated sufficiently with the measures above. All discharge instructions reviewed with patient and/or family. Voiced understanding. Scripts Azithromycin (Azithromycin) 250 Mg Tablet 250 MG PO DAILY, #4 TAB Prov: PAT JEREZ MD 03/04/20 Benzonatate (TESSALON PERLES) 100 Mg Capsule 200 MG PO TID PRN for COUGH, #20 CAP Prov: APT JEREZ MD 03/04/20 Work/School Note: Work Release Form Date Seen in the Emergency Department: Mar 05, 2020 Return to Work: Mar 09, 2020 Other Restrictions Listed Below: If Covid positive, follow health department instructions for return to work Restrictions: If Covid neg, quarantine until no significant symptoms or fever for 72 hrs PAT JEREZ MD Mar 04, 2020 23:35
[2020-03-04] MEDS ORDERED: AZIT250T12 PO (23:39)
[2020-03-04] MEDS ORDERED: BENZ100C18 PO (23:39)
[2020-03-05 00:29] VITALS: BP 138/63
--- NOTE | 2020-03-06 08:23 | NUR ---
Notified of positive test. Questions answered.
== END 2020-03-05 00:28 | disposition home or self-care (01) ==
LOC: EDUNIT# 22:15 → ER 22:17
DX: U07.1 COVID-19 (principal)
CPT/HCPCS: 87804; 99282; U0002; 87635

== ENCOUNTER → 2021-04-17 | Outpatient (CLI) | payer OTHER ==
[~2021-04-17] VITALS: Ht 150 cm; Wt 80.5 kg
[~2021-04-17] MED LIST changes: +ACETAMINOPHEN 500 MG TAB (TYLENOL) PO PRN; +ACYC-112 PO; -ACYC400T PO; +ACYC400T21 PO; -ACYC800T PO; +AZIT250T12 PO; +BAMLANIVIMAB 700 MG/ETESEVIMAB 1,400 MG IN NS IV ONE; +BENZ100C18 PO; +EPINEPHrine INJECTION 1 MG/ML AMP IM PRN; +ONDANSETRON 4 MG/2 ML (SDV) Z0FRAN IV PRN; +diphenhydrAMINE 50 MG/ML INJ (BENADRYL) IV PRN
[2021-04-17 12:04] VITALS: BP 103/71
[2021-04-17 12:30] VITALS: BP 106/67
== END ==
LOC: INFUSION 10:54
PROVIDERS: ATTEND Nurse Practitioner Family
DX: U07.1 COVID-19 (principal)